=== PATIENT | female | born 1990 | race Caucasian/White ===

== ENCOUNTER 2020-06-23 13:48 | Inpatient (IN) | payer OTHER, SELFPAY ==
[2020-06-23] VITALS (14 sets, daily range): BP systolic 102–124; BP diastolic 55–81; PULSE 61–81; RESP 16; TEMP 35.9–36.9; BMI 31.4
[2020-06-23] MEDS: Lactated Ringers 1,000 ML 50 ML IV (14:05)
[2020-06-23 14:25] LABS: Absolute Neutrophil Count 6.8 X10^3/uL (2.0-7.7); Basophil# 0.03 X10^3/uL; Basophil% 0.3 % (0-1); Eosinophil# 0.03 X10^3/uL; Eosinophils% 0.3 % (0-5); Hematocrit 40.8 % (37-47); Hemoglobin 13.7 g/dL (12.0-15.0); Lymphocyte % 17.7 % (19-41); Mean Corp Hgb Conc 33.6 g/dL (32-36); Mean Corpuscular Hgb 28.3 pg (27.0-32.0); Mean Corpuscular Volume 84.3 fL (81-99); Mean Platelet Vol. 9.8 fl (6.2-12.0); Monocyte# 0.51 X10^3/uL; Monocyte% 5.6 % (0-10); NRBC Flagged by Analyzer 0 % (0-5); Neutrophil % 75.1 % (47-70); Platelet Count 256 K/mm3 (150-450); RBC Distribution Width SD 39.7 fl (35.1-43.9); Red Blood Count 4.84 M/mm3 (4.2-5.4); White Blood Count 9.1 K/mm3 (4.4-11.0)
[2020-06-23 15:01] LABS: Rubella IgG Reactive (Nonreactive)
--- NOTE | 2020-06-23 15:10 | HP.PCM_ITS ---
- Problem List (1) heart rate decelerations affecting management of mother Status: Acute (2) Active labor at term Status: Acute History Date of Admission: 06/23/20 Final JACKIE: 06/28/20 Gestational age: 39 Weeks and 2 Days History of this : This is a 29 year-old, , at 39 weeks gestational age presents for management of labor due to heart rate decelerations at home heard by my paid search specialist Diana Cuellar. Patient has had care by the clay pigeon setter starting at 16 weeks with no complications until labor has intermittently come and gone today and an audible deceleration into the 100s was heard by the paid search specialist. Movement has been decreased today. Arboriculture Instructor recommended delivery in the hospital with evaluation here. Medical History: Medical History (Last Updated 06/23/20 @ 15:[address] Tamiko Marcelino MD) Hypothyroidism E03.9 Surgical History: Surgical History (Last Updated 06/23/20 @ 15:[address] Tamiko Marcelino MD) History of tonsillectomy and adenoidectomy Z98.890 Allergies No Known Allergies Allergy (Verified 06/23/20 14:06) Home Medications: Home Medications Levothyroxine Sodium [Euthyrox] 06/23/20 Caplet 06/23/20 Vit D3/Vit K2/Calc Frutoborate 06/23/20 Smoking Status: Never smoker Alcohol: None Number of Fetus(es): 1 NST - FHR Rate Baby A Baseline: 110 Variability:: Moderate Accelerations:: 15 x 15 Decelerations:: None NST Reactive:: Yes FHR Category:: Category I Uterine Activity:: irregular History Past Pregnancies: Past Pregnancies 3 previous term vaginal deliveries uncomplicated 2 miscarriages early Labs: Mom's Microbiology 06/23/20 14:10 Mucosa - Nose SARS-CoV-2 Antigen (Rapid) - Final Mom's Labs & Results 06/23/20 06/23/20 06/23/20 14:05 14:05 14:05 WBC 9.1 RBC 4.84 Hgb 13.7 Hct 40.8 MCV 84.3 MCH 28.3 MCHC 33.6 RDW Std Deviation 39.7 RDW Coeff of Cha 13.0 Plt Count 256 MPV 9.8 Immature Gran % (Auto) 1.000 H Neut % (Auto) 75.1 H Lymph % (Auto) 17.7 L [place] % (Auto) 5.6 Eos % (Auto) 0.3 Baso % (Auto) 0.3 Absolute Neuts (auto) 6.8 Absolute Lymphs (auto) 1.60 Nucleated RBC % 0 Chlam trachomat DNA PCR Hep Bs Antigen Hepatitis C Antibody HIV 1&2 Antibody N.gonorrhoeae DNA (PCR) Rubella IgG Antibody Reactive Group B Strep DNA Specimen Comment Blood Type Pending Antibody Screen Pending 06/23/20 06/23/20 14:05 14:10 WBC RBC Hgb Hct MCV MCH MCHC RDW Std Deviation RDW Coeff of Cha Plt Count MPV Immature Gran % (Auto) Neut % (Auto) Lymph % (Auto) [place] % (Auto) Eos % (Auto) Baso % (Auto) Absolute Neuts (auto) Absolute Lymphs (auto) Nucleated RBC % Chlam trachomat DNA PCR Pending Hep Bs Antigen Pending Hepatitis C Antibody Pending HIV 1&2 Antibody Pending N.gonorrhoeae DNA (PCR) Pending Rubella IgG Antibody Group B Strep DNA Pending Specimen Comment Pending Blood Type Antibody Screen Course Did the patient receive Yes care? Labs Blood Type: O RH: POSITIVE Rubella status Immune HbSAg Collected on Admission HIV/AIDS Unknown Group B Strep: Collected on Admission Current Obstetrical History Gestational Diabetes No Incompetent Cervix No Infertility No IUGR No Macrosomia No Hypertension/Pre-eclampsia No Placenta Previa/Abruption No PTL/PROM No Uterine anomaly No Oligohydramnios No Polyhydramnios No Multiple gestation No Past Medical History Asthma No Diabetes No Hypertension No Heart disease No Mitral valve prolapse No Neurologic/Seizure disorder/ No Migraines Kidney disease No Liver disease No Varicosities No Clotting disorders/Hx of DVT No Thyroid Dysfunction Yes: Hashimotos disease 2016 Other medical diseases No Psychiatric disorders No Major trauma No Abnormal PAP smear No Sleep apnea No Mammogram in the last 2 years No Social History Marital Status: Alleged father Kenny Enciso Hx Smoking No Smoking Status Never smoker Expected Delivery Method: Spontaneous Vaginal Review of Systems Constitutional: Denies: Fever, Malaise Eyes: Denies: Blurred vision, Vision Change HEENT: Denies: Head Aches, Visual Changes Cardiovascular: Denies: Chest Pain, Palpitations Respiratory: Denies: Cough, Shortness of Breath, Wheezing Gastrointestinal: Denies: Abdominal Pain, Diarrhea, Nausea, Vomiting Genitourinary: Denies: Dysuria, Hematuria Musculoskeletal: Denies: Joint Pain, Muscle pain Skin: Denies: Lesions, Rash Neurological: Denies: Blurred vision, Focal weakness, Headaches Psychiatric: Denies: Anxiety, Depression Endocrine: Denies: Heat/ Cold Intolerance Hematologic/ Lymphatic: Denies: Easy Bruising, Easy Bleeding Physical Exam Vitals: Vital Signs Pulse BP 81 112/77 06/23/20 14:02 06/23/20 14:02 General: Alert, Cooperative, No apparent distress HEENT: Atraumatic, Normocephalic. Negative for: Thyromegaly, Lymphadenopathy Cardiovascular: Regular rate Lungs: Normal air movement Abdomen: Soft, Non Tender, Gravid Neurological: Deep Tendon Reflexes 2+/4 and Symmetrical, Neuro grossly intact. Negative for: Clonus YOUTH MANAGER: Normal external genitalia. Negative for: Vulvar lesions Estimated gestational size: Appropriate for gestational size Presentation: Cephalic Assessment/Plan All Active Problems heart rate decelerations affecting management of mother (Acute) Active labor at term (Acute) This is a 29 year-old, G 6P3, at 39 weeks gestational age presents in active labor. Admit patient and limited care panel ordered. IV fluids given. Reassuring heart tones at this time. Discussed and planned AROM clear fluid and labor support. Patient declines pain management intervention
[2020-06-23 15:40] LABS: HIV - WCH Non-Reactive (Nonreactive); Hepatitis B Surface Antigen Non-Reactive (Nonreactive); Hepatitis C Antibody Non-Reactive (Nonreactive)
[2020-06-23 16:03] LABS: Group B Strep DNA By PCR Negative (Negative); Internal Control PASS; Probe Check PASS; Specimen Processing Control PASS
--- NOTE | 2020-06-23 16:43 | PCM.OPRPT ---
Problem List (1) heart rate decelerations affecting management of mother Status: Acute (2) Active labor at term Status: Acute Vaginal Delivery Maternal Presentation: Active Labor Amniotic Membrane Rupture Type: Artificial Amniotic Fluid Description: Clear Final JACKIE: 06/28/20 Gestational age: 39 Weeks and 2 Days Date of Procedure: 06/23/20 Pre-Operative Diagnosis: ial decel Post-Operative Diagnosis: same Surgery/ Procedure Performed: Spontaneous Vaginal Delivery Type of Anesthesia: None Description of Procedure: Patient began pushing and delivered the head in the JANN presentation. The head was delivered atraumatically . The anterior and posterior shoulders delivered without complication followed by the rest of the and the infant was placed on the maternal abdomen. Delayed cord clamping was employed for approximately 60 seconds. Cord was clamped and cut and gentle traction was applied to the cord and the placenta delivered spontaneously immediately following it was noted to be intact with three-vessel cord. The perineum and vagina were inspected and noted to have no laceration. EBL was 100 cc. Patient and tolerated delivery well. Presentation: JANN Placental Delivery Description: Spontaneous Placenta Disposition: [facility] Cord Vessel Description: 3 Vessels Cord Entanglement: None Estimated Blood Loss: 100 Infant A gender: Male Episiotomy Description: None Laceration: None Complications: None Multi Select Codes - Urinary/Genital Urinary/Genital CPT Codes: 66746 Vaginal Delivery Only
--- NOTE | 2020-06-23 16:52 | DCINST_ITS ---
Discharge Diet: No Restrictions Discharge Activity: Return to Normal Activity, May not drive while taking narcotic pain medications., May Shower May resume sexual activity in: 4-6 weeks Call your doctor if your incision/area has: Continuous Slow Oozing, Sudden Increased Bleeding, Increased Pain/ Swelling, Increased Redness, Foul Smelling Discharge Additional Instructions: If you experience any of the following, contact your healthcare provider. * Bleeding that soaks a pad every hour for 2 hours * Fever 100.4 or higher * Unrelieved incision or abdominal pain * Swelling, redness, discharge or bleeding from your incision or episiotomy site * Your incision begins to separate * Problems urinating (including inability to urinate or burning while urinating). * Visual changes * Severe headache * Flu-like symptoms * Pain or redness in one of both of your breasts * Pain, warmth, tenderness or swelling in your legs, especially the calf area * Frequent nausea and vomiting * Symptoms of depression or anxiety If you experience any of the following, call 911 or go to the nearest Emergency Room. * Chest pain * Problems breathing * Seizure activity * Partial or complete paralysis of a body part, slurred speech, weakness or drooping of the face, or a sudden inability to walk or hold your balance Allergies/Adverse Reactions: Allergies No Known Allergies Allergy (Verified 06/23/20 14:06) Medications to take at Discharge Levothyroxine Sodium [Euthyrox] 06/23/20 Caplet 06/23/20 Vit D3/Vit K2/Calc Frutoborate 06/23/20 Please Follow Up With: Tamiko Marcelino MD - [phone] When: Call to make an appointment with your doctor in 6 weeks. If you had elevated Blood pressure or 4th degree laceration you will need to be seen in 2 weeks. Test Results: Test results from this visit will be discussed in further detail at your follow- up appointment, if applicable.
--- NOTE | 2020-06-23 16:52 | PCM.DCVAG ---
Discharge Diet: No Restrictions Discharge Activity: Return to Normal Activity, May not drive while taking narcotic pain medications., May Shower May resume sexual activity in: 4-6 weeks Call your doctor if your incision/area has: Continuous Slow Oozing, Sudden Increased Bleeding, Increased Pain/ Swelling, Increased Redness, Foul Smelling Discharge Additional Instructions: If you experience any of the following, contact your healthcare provider. Bleeding that soaks a pad every hour for 2 hours Fever 100.4 or higher Unrelieved incision or abdominal pain Swelling, redness, discharge or bleeding from your incision or episiotomy site Your incision begins to separate Problems urinating (including inability to urinate or burning while urinating). Visual changes Severe headache Flu-like symptoms Pain or redness in one of both of your breasts Pain, warmth, tenderness or swelling in your legs, especially the calf area Frequent nausea and vomiting Symptoms of depression or anxiety If you experience any of the following, call 911 or go to the nearest Emergency Room. Chest pain Problems breathing Seizure activity Partial or complete paralysis of a body part, slurred speech, weakness or drooping of the face, or a sudden inability to walk or hold your balance Allergies/Adverse Reactions: Allergies No Known Allergies Allergy (Verified 06/23/20 14:06) Medications to take at Discharge Levothyroxine Sodium [Euthyrox] 06/23/20 Caplet 06/23/20 Vit D3/Vit K2/Calc Frutoborate 06/23/20 Please Follow Up With: Tamiko Marcelino MD - [phone] When: Call to make an appointment with your doctor in 6 weeks. If you had elevated Blood pressure or 4th degree laceration you will need to be seen in 2 weeks. Test Results: Test results from this visit will be discussed in further detail at your follow-up appointment, if applicable.
[2020-06-24 04:00] VITALS: BP 110/73; PULSE 67; RESP 16; TEMP 36.2
[2020-06-24 06:19] LABS: Chlamydia Trachomatis by PCR Negative (Negative); Neisserai gonorrhoeae by PCR Negative (Negative); Probe Check PASS; Sample Adequacy Control PASS; Specimen Processing Control PASS
--- NOTE | 2020-06-24 07:58 | PCM.PN.OB ---
Patient Problems: Active and Suspected Problems (Last Updated 06/23/20 @ 15:[address] Tamiko Marcelino MD) heart rate decelerations affecting management of mother (Acute) Active labor at term (Acute) Subjective: Patient doing well without complaints. Tolerating PO. Ambulating and voiding without difficulty. Breast feeding well. Denies chest pain, shortness of breath, calf pain/swelling, fevers, chills, lightheadedness. - Physical Exam Vitals/I&O's: Vital Signs Temp Pulse Resp BP 97.1 F L 67 16 110/73 06/24/20 04:00 06/24/20 04:00 06/24/20 04:00 06/24/20 04:00 Oxygen Delivery Method Room Air Weight: 213 lb Body Mass Index (BMI) 31.4 Intake and Output for Last 24 Hours 06/22/20 06/23/20 06/24/20 23:59 23:59 23:59 Intake Total 904.16 / 904.16 Output Total 650 / 650 900 / 900 Balance 254.16 / 254.16 -900 / -900 General: Oriented x3 Abdomen: Soft, Non-Distended, - - FF below U Microbiology Past 72 Hours 06/23/20 14:10 Mucosa - Nose SARS-CoV-2 Antigen (Rapid) - Final Laboratory Results 06/23/20 14:05: WBC 9.1, RBC 4.84, Hgb 13.7, Hct 40.8, MCV 84.3, MCH 28.3, MCHC 33.6, RDW Std Deviation 39.7, RDW Coeff of Cha 13.0, Plt Count 256, MPV 9.8, Immature Gran % (Auto) 1.000 H, Neut % (Auto) 75.1 H, Lymph % (Auto) 17.7 L, [place] % (Auto) 5.6, Eos % (Auto) 0.3, Baso % (Auto) 0.3, Absolute Neuts (auto) 6.8, Absolute Lymphs (auto) 1.60, Nucleated RBC % 0 06/23/20 14:05: Rubella IgG Antibody Reactive 06/23/20 14:05: RPR Pending 06/23/20 14:05: Blood Type O POSITIVE, Antibody Screen NEGATIVE 06/23/20 14:05: Hep Bs Antigen Non-Reactive, Hepatitis C Antibody Non-Reactive, HIV 1&2 Antibody Non-Reactive 06/23/20 14:10: Chlam trachomat DNA PCR Negative, N.gonorrhoeae DNA (PCR) Negative, Group B Strep DNA Negative, Specimen Comment Not Reportable 06/24/20 01:30: Chlam trachomat DNA PCR Cancelled, N.gonorrhoeae DNA (PCR) Cancelled Current Medications Acetaminophen (Acetaminophen 500 Mg Tablet) 1,000 mg PO Q8H PRN PRN PRN Reason: Pain Score 1-3 Bisacodyl (Bisacodyl 10 Mg Suppository) 10 mg RECTAL UD PRN PRN Reason: If no BM Dibucaine (Dibucaine 30 Gm Tube) 1 applic TOPICAL TID PRN PRN; Protocol PRN Reason: Discomfort Hydrocortisone (Hydrocortisone 2.5% Crm) 1 applic TOPICAL TID PRN PRN; Protocol PRN Reason: Discomfort Methylergonovine Maleate (Methylergonovine 0.2 Mg/Ml Ampul) 0.2 mg IM X1 PRN PRN Reason: Excess bleeding/uterine atony Naproxen (Naproxen 250 Mg Tablet) 500 mg PO Q8H PRN PRN PRN Reason: Pain Score 1-3 Ondansetron HCl (Ondansetron 4 Mg/2 Ml Vial) 4 mg IV Q4H PRN PRN PRN Reason: Nausea Oxycodone HCl (Oxycodone 5 Mg Tablet) 5 - 10 mg PO Q4H PRN PRN PRN Reason: Pain Score 4-10 Senna/Docusate Sodium (Senna/Docusate Sodium 1 Tablet) 1 - 2 tablet PO DAILY PRN PRN PRN Reason: Constipation Simethicone (Simethicone 80 Mg Tablet) 80 mg PO PCHS PRN PRN Reason: Indigestion/Stomach pain Sodium Chloride (0.9% Saline Lock 10 Ml Syringe) 5 - 15 ml IV UD PRN PRN Reason: SALINE FLUSH Medical Necessity - Tobacco Use Smoking Status: Never smoker Assessment/Plan All Active Problems (Last Updated 06/23/20 @ 15:[address] Tamiko Marcelino MD) heart rate decelerations affecting management of mother (Acute) Active labor at term (Acute) s/p PPD # 1 1. routine post delivery care 2. breast feeding- support given 3. rh positive 4. rubella pending 5. home today
[2020-06-24 08:56] VITALS: BP 109/71; PULSE 73; RESP 16; TEMP 36.6; O2SAT 97
[2020-06-24 12:18] VITALS: BP 119/62; PULSE 61; RESP 16; TEMP 36.5; O2SAT 96
[2020-06-24 18:25] VITALS: BP 115/73; PULSE 75; RESP 16; TEMP 36.7; O2SAT 96
[2020-06-25 01:10] LABS: Rapid Plasmin Reagin (RPR) NONREACTIVE (NONREACTIVE)
== END 2020-06-24 18:39 | disposition home or self-care (01) | DRG 807 ==
PROVIDERS: Admitting Provider Obstetrics & Gynecology; Visit Provider Obstetrics & Gynecology
DX: O76 Abnormality in fetal heart rate and rhythm complicating labor and delivery (principal); Z37.0 Single live birth; Z3A.39 39 weeks gestation of pregnancy
CPT/HCPCS: 59025; 59050; 76815; 85025; 86592; 86703; 86762; 86803; 86850; 86900; 86901; 87081; 87340; 87426; 87491; 87591; 87653; 99218; J7120; G0378